=== PATIENT | female | born 1980 | race Caucasian/White ===

== ENCOUNTER 2017-03-12 22:16 | Emergency (ER) | payer OTHER ==
[2017-03-13 00:54] VITALS: TEMP 98.7
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
[2017-03-13 01:36] VITALS: BP 138/84; PULSE 89; RESP 16
== END 2017-03-13 01:36 | disposition home or self-care (01) ==
LOC: EC 22:16
DX: S00.83XA Contusion of other part of head, initial encounter (principal); M79.641 Pain in right hand; F17.200 Nicotine dependence, unspecified, uncomplicated; Y04.0XXA Assault by unarmed brawl or fight, initial encounter
CPT/HCPCS: 70450; 99284